=== PATIENT | female | born 1990 | race Caucasian/White ===

== ENCOUNTER 2017-07-22 21:03 | Emergency (ER) | payer OTHER ==
[~2017-07-22] VITALS: Ht 177.8 cm; Wt 63.5 kg
[2017-07-22] MEDS ORDERED: XANAX 0.25 MG0.25 MG PO (21:08)
[2017-07-22 22:44] LABS: ABSOLUTE NEUTROPHILS 5.5 thou/uL (1.4-8.2); BASOPHILS 0.7 % (0.0-2.0); EOSINOPHILS 1.8 % (0.0-3.0); HEMATOCRIT 38.5 % (37.0-47.0); HEMOGLOBIN 13.2 gm/dL (12.0-15.0); LYMPHOCYTES 33.6 % (24.0-44.0); MCH 30.7 pg (26.0-34.0); MCHC 34.3 g/dL (28.0-37.0); MCV 89.5 fL (80.0-100.0); MONOCYTES 3.7 % (1.0-8.0); PLATELET COUNT 328 thou/uL (150-400); POLYS 60.2 % (36.0-66.0); RDW 12.7 % (10.5-14.5); WBC 9.2 thou/uL (4.0-11.0)
[2017-07-22 22:48] LABS: ANION GAP 11 mmol/L (7-16); BUN 15 mg/dL (7-18); CALCIUM 8.7 mg/dL (8.5-10.1); CHLORIDE 107 mmol/L (98-107); CO2 26 mmol/L (21-32); GLUCOSE 91 mg/dL (74-106); POTASSIUM 3.8 mmol/L (3.5-5.1); SODIUM 144 mmol/L (136-145)
[2017-07-22 22:54] LABS: DIRECT BILIRUBIN < 0.1 mg/dL (<0.1-0.3); LIPASE 102 U/L (73-393); SGOT 17 U/L (15-37); SGPT 27 U/L (30-65); TOTAL BILIRUBIN 0.4 mg/dL (<0.1-1.0)
[2017-07-22 23:58] LABS: URINE BILIRUBIN NEGATIVE (Negative); URINE BLOOD NEGATIVE (Negative); URINE CLARITY CLEAR; URINE COLOR YELLOW; URINE GLUCOSE-RANDOM* NEGATIVE (Negative); URINE KETONES TRACE (Negative); URINE LEUKOCYTES-REFLEX NEGATIVE (Negative); URINE NITRITE-REFLEX NEGATIVE (Negative); URINE PROTEIN (DIPSTICK) NEGATIVE (Negative); URINE SPECIFIC GRAVITY <= 1.005 (1.005-1.035); URINE UROBILINOGEN 0.2 E.U./dl (0.2-1.0)
[2017-07-23] MEDS ORDERED: HYDROCODONE-AP1 EAC6 PO (00:52)
== END 2017-07-23 01:01 | disposition home or self-care (01) ==
LOC: ER 21:03
PROVIDERS: Emergency Medicine
DX: R10.30 Lower abdominal pain, unspecified (principal)

== ENCOUNTER 2019-11-20 20:07 | Emergency (ER) | payer BC ==
[~2019-11-20] VITALS: Ht 177.8 cm; Wt 68.0 kg
[~2019-11-20 20:07] MED LIST: HYDROCODONE-AP1 EAC6 PO; XANAX 0.25 MG0.25 MG PO
[2019-11-20] MEDS ORDERED: SERTRALINE HCL50 MG PO (20:17)
[2019-11-20] MEDS ORDERED: HYDROCODON-ACE1 EAC7 PO (20:17)
[2019-11-20] MEDS ORDERED: ZOFRAN ODT4 MG PO (21:52)
[2019-11-20] MEDS ORDERED: AUGMENTIN 875-1 EACH PO (21:52)
[2019-11-20] MEDS ORDERED: ROXICODONE5 M2 PO (21:52)
[2019-11-20 22:05] VITALS: BP 117/55
== END 2019-11-20 22:05 | disposition home or self-care (01) ==
LOC: ER 20:07
DX: K08.89 Other specified disorders of teeth and supporting structures (principal); Z79.899 Other long term (current) drug therapy